=== PATIENT | male | born 1975 | race Caucasian/White ===

== ENCOUNTER 2020-01-26 19:22 | Emergency (ER) | payer SELFPAY ==
[~2020-01-26] VITALS: Ht 190.5 cm; Wt 127.3 kg
[~2020-01-26 19:22] MED LIST: FLEXERIL 1010 MG/TAB PO; NO HOME MEDICATIONS; NORCO 325 MG-51 TAB PO
[2020-01-26 19:26] VITALS: TEMP 99.1
[2020-01-26 19:40] LABS: BASO % 0.2 % (0.0-2.0); EOS # 0.4 (0.0-0.7); GRAN # 8.5 (1.4-6.5); GRAN % 72.9 % (42.2-75.2); HEMATOCRIT 41.4 % (42.0-52.0); HEMOGLOBIN 13.8 g/dl (13.5-18.0); LYMPH # 1.9 (1.2-3.4); LYMPH % 16.4 % (20.0-51.0); MEAN CELL VOLUME 88 fl (80.0-100.0); MEAN CORPUSCULAR HEMOGLOBIN 29 pg (27.0-31.0); MEAN CORPUSCULAR HGB CONC 33 g/dl (33.0-37.0); MEAN PLATELET VOLUME 9.4 fl (7.4-10.4); MONO # 0.8 (0.1-0.6); MONO % 6.9 % (1.7-9.3); PLATELET COUNT 306 K/mm3 (130-400); RED BLOOD COUNT 4.71 M/mm3 (4.20-5.60)
[2020-01-26 20:01] LABS: ALBUMIN 4.6 gm/dL (3.5-5.0); BILIRUBIN,TOTAL 0.7 mg/dL (0.0-1.0); CALCIUM 10.1 mg/dL (8.4-10.2); CREATININE, serum 1.16 (0.66-1.25); TOTAL PROTEIN 7.9 gm/dL (6.4-8.2)
[2020-01-26 20:09] LABS: ARTERIAL BLD GAS O2 SATURATION 98.6 % (92-100); ARTERIAL BLD GAS TCO2 CT 21.5; ARTERIAL BLOOD GAS BASE EXCESS 0.5 (-2-2); ARTERIAL BLOOD GAS HCO3 20.8 meq/L (22-26); ARTERIAL BLOOD GAS PO2 100.3 mmHg (80-100); ARTERIAL BLOOD GAS pH 7.57 (7.35-7.45)
[2020-01-26 20:10] LABS: ARTERIAL BLOOD GAS PCO2 23.4 mmHg (35-45)
[2020-01-26] MEDS ORDERED: PREDNISONE20 MG PO (21:36)
[2020-01-26 21:55] VITALS: BP 122/71; PULSE 79
== END 2020-01-26 21:58 | disposition home or self-care (01) ==
LOC: COL.ER 19:22
PROVIDERS: Emergency Medicine
DX: J70.5 Respiratory conditions due to smoke inhalation (principal); R06.02 Shortness of breath; Z88.6 Allergy status to analgesic agent
CPT/HCPCS: J2930; J7030; J7512

== ENCOUNTER 2020-07-19 15:25 | Emergency (ER) | payer OTHER ==
[~2020-07-19] VITALS: Ht 190.5 cm; Wt 139.1 kg
[~2020-07-19 15:25] MED LIST changes: +PREDNISONE20 MG PO
[2020-07-19 15:27] VITALS: BP 123/77; TEMP 98.5
[2020-07-19] MEDS ORDERED: CARAFATE 1GM1 G PO (15:40)
[2020-07-19] MEDS ORDERED: PRILOSEC10 MG PO (15:41)
[2020-07-19] MEDS ORDERED: PREDNISONE20 MG PO (17:38)
[2020-07-19 17:47] VITALS: PULSE 80
== END 2020-07-19 17:46 | disposition home or self-care (01) ==
LOC: COL.ER 15:25
DX: T59.811A Toxic effect of smoke, accidental (unintentional), initial encounter (principal); R06.02 Shortness of breath; Z88.6 Allergy status to analgesic agent
CPT/HCPCS: J7512

== ENCOUNTER 2021-07-24 17:42 | Emergency (ER) | payer SELFPAY ==
[~2021-07-24] VITALS: Ht 190.5 cm; Wt 140.9 kg
[~2021-07-24 17:42] MED LIST changes: +CARAFATE 1GM1 G PO; +PRILOSEC10 MG PO
[2021-07-24 17:57] VITALS: TEMP 98
[2021-07-24 18:34] LABS: BASO % 0.3 % (0.0-2.0); EOS # 0.2 K/mm3 (0.0-0.7); EOS % 2.5 % (0.0-4.0); GRAN # 7.2 K/mm3 (1.4-6.5); GRAN % 75.2 % (42.2-75.2); HEMATOCRIT 38.1 % (42.0-52.0); HEMOGLOBIN 12.1 g/dl (13.5-18.0); LYMPH # 1.2 K/mm3 (1.2-3.4); LYMPH % 12.8 % (20.0-51.0); MEAN CELL VOLUME 88 fl (80.0-100.0); MEAN CORPUSCULAR HEMOGLOBIN 28 pg (27-31); MEAN CORPUSCULAR HGB CONC 32 g/dl (33.0-37.0); MEAN PLATELET VOLUME 9.1 fl (7.4-10.4); MONO # 0.9 K/mm3 (0.1-0.6); MONO % 8.9 % (1.7-9.3); PLATELET COUNT 279 K/mm3 (130-400); RED BLOOD COUNT 4.33 M/mm3 (4.20-5.60); REDCELL DISTRIBUTION WIDTH-CV 13.5 % (11.5-14.5)
[2021-07-24 18:59] LABS: ALBUMIN 3.6 gm/dL (3.5-5.0); BILIRUBIN,TOTAL 0.3 mg/dL (0.2-1.2); C-REACTIVE PROTEIN 1.11 mg/dL (0.00-0.50); CALCIUM 8.8 mg/dL (8.4-10.2); CREATININE, serum 1.32 mg/dL (0.72-1.25); POTASSIUM 3.8 mmol/L (3.5-4.5); TOTAL PROTEIN 6.7 gm/dL (6.2-8.1)
[2021-07-24 19:08] LABS: COLLECTION METHOD CLEAN CATCH
[2021-07-24 19:19] LABS: MUCOUS Present (NOT PRESENT); PH 6 (5-8); SQUAMOUS EPITHELIAL 0-2 /hpf (0-10); URINE APPEARANCE Clear (CLEAR/HAZY); URINE BACTERIA None Seen /hpf (NONE SEEN); URINE BILIRUBIN Negative (NEGATIVE); URINE BLOOD Negative (NEGATIVE); URINE COLOR Yellow (YELLOW); URINE GLUCOSE Negative (NEGATIVE); URINE KETONE Negative (NEGATIVE); URINE LEUKOCYTE ESTERASE Negative (NEGATIVE); URINE NITRATE Negative (NEGATIVE); URINE PROTEIN(semi-quant) Negative (NEGATIVE); URINE RBC 0-2 /hpf (0-2); URINE UROBILINOGEN Negative (NEGATIVE)
[2021-07-24 22:11] VITALS: BP 191/86; PULSE 73
== END 2021-07-24 22:11 | disposition home or self-care (01) ==
LOC: COL.ER 17:42
PROVIDERS: Physician Assistant
DX: K80.20 Calculus of gallbladder without cholecystitis without obstruction (principal); Z88.6 Allergy status to analgesic agent
CPT/HCPCS: J1885; J2270; Q9967

== ENCOUNTER 2021-07-26 13:56 | Inpatient (IN) | payer SELFPAY ==
[~2021-07-26] VITALS: Ht 190.5 cm; Wt 140.5 kg
[2021-07-26 15:23] LABS: BASO % 0.2 % (0.0-2.0); EOS # 0.5 K/mm3 (0.0-0.7); EOS % 4.9 % (0.0-4.0); GRAN # 7.3 K/mm3 (1.4-6.5); GRAN % 73.6 % (42.2-75.2); HEMOGLOBIN 12.7 g/dl (13.5-18.0); LYMPH # 1.3 K/mm3 (1.2-3.4); LYMPH % 13.3 % (20.0-51.0); MEAN CELL VOLUME 88 fl (80.0-100.0); MEAN CORPUSCULAR HEMOGLOBIN 28 pg (27-31); MEAN CORPUSCULAR HGB CONC 32 g/dl (33.0-37.0); MEAN PLATELET VOLUME 9.4 fl (7.4-10.4); MONO # 0.8 K/mm3 (0.1-0.6); MONO % 7.6 % (1.7-9.3); PLATELET COUNT 289 K/mm3 (130-400); RED BLOOD COUNT 4.57 M/mm3 (4.20-5.60); REDCELL DISTRIBUTION WIDTH-CV 13.6 % (11.5-14.5)
[2021-07-26 15:35] LABS: ALANINE AMINOTRANSFERASE 22 U/L (0-55); ALBUMIN 3.4 gm/dL (3.5-5.0); ALKALINE PHOSPHATASE 69 U/L (40-150); ANION GAP 9 mmol/L (7-16); AST,SGOT 14 U/L (5-34); BILIRUBIN,TOTAL 0.4 mg/dL (0.2-1.2); BLOOD UREA NITROGEN 16 mg/dL (9-21); CALCIUM 8.7 mg/dL (8.4-10.2); CARBON DIOXIDE 20 mmol/L (22-29); CHLORIDE 111 mmol/L (98-107); CREATININE, serum 1.09 mg/dL (0.72-1.25); GLUCOSE 105 mg/dL (70-99); LIPASE 11 U/L (8-78); POTASSIUM 4.1 mmol/L (3.5-4.5); SODIUM 140 mmol/L (136-145); TOTAL PROTEIN 6.9 gm/dL (6.2-8.1)
[2021-07-26 15:40] LABS: TROPONIN-I < 0.010 ng/mL (0.00-0.033)
[2021-07-26 17:50] LABS: INR 1.2 (0.8-3.0)
[2021-07-26 17:53] LABS: PARTIAL THROMBOPLASTIN TIME 29.1 SECONDS (26.0-37.0)
--- NOTE | 2021-07-26 19:58 | NUR ---
Arrived to room 352 via wheelchair from ED.
[2021-07-26 20:11] VITALS: BP 125/73; PULSE 69; TEMP 98.4
[2021-07-26] MEDS ORDERED: TOPAMAX50 MG PO (20:26)
[2021-07-26] MEDS ORDERED: PRIL40 PO (20:27)
[2021-07-26] MEDS ORDERED: CARAFATE 1GM1 G PO (20:34)
[2021-07-26] MEDS ORDERED: BENADRYL25 M2 PO (20:37)
--- NOTE | 2021-07-26 23:30 | NUR ---
Called with c/o pain to right side/flank-described as sharp jaana-rating pain 8/10 on pain scale. Dilaudid given per dr order as it is still to early for PO medications. Will reassess in 30 minutes.
[2021-07-26 23:50] VITALS: BP 133/79; PULSE 67; TEMP 98.1
--- NOTE | 2021-07-27 00:01 | NUR ---
Resting eyes closed. NO s/s of pain noted.
--- NOTE | 2021-07-27 00:24 | NUR ---
Heparin stopped at this time for critical level of 1.06. Next HepXa due at 0226
--- NOTE | 2021-07-27 02:53 | NUR ---
Called with c/o pain to right flank/side. Rating pain 8/10 on pain scale described as throbbing. Hydrocodone given per dr order.
[2021-07-27 03:23] LABS: PARTIAL THROMBOPLASTIN TIME 34.5 SECONDS (26.0-37.0)
--- NOTE | 2021-07-27 03:30 | NUR ---
Heparin drip restarted at this time per protocol. Infusion decrested 300 units from previous rate based on protocol. Next HepXa due at 0930
[2021-07-27 04:13] VITALS: BP 113/69; PULSE 66; TEMP 97.9
--- NOTE | 2021-07-27 05:09 | NUR ---
Pt had uneventful night. VS remained stable. Reived norco/dilaudid for pain to right flank. Denied nausea/shortness of breath. Heparin infusing to left hand IV @20ml/hr without difficulty. Denies current needs. Call light in reach. Will monitor.
--- NOTE | 2021-07-27 07:30 | NUR ---
Shift assessment complete. Pt up to restroom independently. Reports 8/10 right flank pain radiating to lower back. Terrell given per orders. Also reports migraine this morning and associated nausea. Scheduled topamax and PRN zofran given. Heart RRR. Lungs CTA. Denies any SOA or chest pain. Continuing to monitor.
[2021-07-27 07:48] VITALS: BP 133/78; PULSE 60; TEMP 98.7
--- NOTE | 2021-07-27 11:48 | NUR ---
warehouse insulation worker met with patient to discuss discharge plan. Patient currently lives in [place] with his and children. Patient is independent with his ADL's and does not utilize any DME or oxygen at home. Patient does not have a PCP and will need one upon dc. Patient utilizes [facility] in [place] for medications. Patient reports that he does not have a DPOA-HC established and is not interested in creating one at this time. Education provided and patient is fine with his being his agent. Patient is planning on returning home post discharge. Patient reports that his insrance covreage starts on August 21 of this year. Discharge plan: Home
[2021-07-27 12:16] VITALS: BP 121/63; PULSE 67; TEMP 98.2
--- NOTE | 2021-07-27 13:00 | NUR ---
First visit from the superintendent recreation. No needs right now.
[2021-07-27] MEDS ORDERED: IMITREX50 MG PO (13:36)
[2021-07-27 16:18] VITALS: BP 142/81; PULSE 71; TEMP 97.9
[2021-07-27 19:11] VITALS: BP 146/73; PULSE 69; TEMP 99.4
[2021-07-27 22:32] VITALS: BP 125/65; PULSE 72; TEMP 97.6
[2021-07-28 04:29] VITALS: BP 102/83; PULSE 68; TEMP 98.6
--- NOTE | 2021-07-28 07:40 | NUR ---
Pt assessment complete. Pt is sitting on the side of the bed upon entry, he is A/Ox4. His breathing is even and unlabored on RA, pt reports SOB with pain. Reports pain to RUQ 11/29. Requesting IV Dilaudid. Discussed pain management with patient. Pt denies any worsening pain or N/V with eating and drinking. Denies any further headaches this am. No further needs. Call light within reach.
[2021-07-28] MEDS ORDERED: ELIQUIS 5MG PO (08:03)
[2021-07-28 09:00] VITALS: BP 120/74; PULSE 83; TEMP 98.1
--- NOTE | 2021-07-28 10:16 | NUR ---
hatchery worker met with patient to discuss differnt PCP offices.States that he doesn't want to do anything with [facility] and would like to keep it in [place]. Educated the patient on the different offices located in [place] which he texted to his .States " i'll let her make the decision because the while family needs one". Patient's RN notified of the above. Discharge plan: Home
[2021-07-28] MEDS ORDERED: NORCO 325 MG-51 TAB PO (10:25)
--- NOTE | 2021-07-28 12:36 | NUR ---
Discharge paperwork and instructions reviewed with patient. All questions answered at this time. IV to Lhand and LAC dc'd catheters intact. Pt wheeled out of facility by staff member at this time.
[2021-08-01] MEDS ORDERED: CARAFATE 1GM1 G PO (15:10)
[2021-08-01] MEDS ORDERED: PEPCID 20MG TAB20 MG PO (15:10)
[2021-08-01] MEDS ORDERED: ZOFRAN ODT4 MG PO (15:10)
== END 2021-07-28 12:37 | disposition home or self-care (01) | DRG 176 ==
LOC: COL.ER 13:56 → MEDICAL 18:01
PROVIDERS: Physician Assistant; ADMIT Student in an Organized Health Care Education/Training Program
DX: I26.99 Other pulmonary embolism without acute cor pulmonale (principal); J90 Pleural effusion, not elsewhere classified; K21.9 Gastro-esophageal reflux disease without esophagitis; G43.909 Migraine, unspecified, not intractable, without status migrainosus; I51.9 Heart disease, unspecified; K80.20 Calculus of gallbladder without cholecystitis without obstruction; Z79.52 Long term (current) use of systemic steroids
CPT/HCPCS: 99239; J1170; J1644; J2405; J7030; Q9967

== ENCOUNTER 2022-02-16 12:13 | Emergency (ER) | payer BC ==
[~2022-02-16] VITALS: Ht 190.5 cm; Wt 140.9 kg
[~2022-02-16 12:13] MED LIST changes: +BENADRYL25 M2 PO; +ELIQUIS 5MG PO; +IMITREX50 MG PO; +PEPCID 20MG TAB20 MG PO; +PRIL40 PO; +TOPAMAX50 MG PO; +ZOFRAN ODT4 MG PO
[2022-02-16 12:21] VITALS: BP 138/83; PULSE 70; TEMP 98.3
[2022-02-16] MEDS ORDERED: COZAAR 25MG25 MG/TAB PO (13:05)
[2022-02-16] MEDS ORDERED: MEDROL 4MG DOSPA4 MG PO (13:42)
[2022-02-16] MEDS ORDERED: FLEXERIL 1010 MG/TAB PO (13:42)
== END 2022-02-16 13:53 | disposition home or self-care (01) ==
LOC: COL.ER 12:13
DX: M54.16 Radiculopathy, lumbar region (principal); Z28.310 Unvaccinated for COVID-19
CPT/HCPCS: J1885; J2360